=== PATIENT | male | born 1980 | race Caucasian/White ===

== ENCOUNTER 2016-08-25 07:21 | Observation (INO) ==
[2016-08-25] MEDS ORDERED: SODIUM CHLORIDE 0.9% 1,000 ML IV STA (07:50)
[2016-08-25] MEDS ORDERED: HYDROmorphone 2 MG/1 ML VIAL IV STA (07:50)
[2016-08-25] MEDS ORDERED: ONDANSETRON 4 MG/2 ML VIAL IV STA (07:50)
[2016-08-25] MEDS ORDERED: FAMOTIDINE 20 MG/2 ML VIAL IV STA (07:52)
[2016-08-25 07:57] LABS: Basophils % 0.6 % (0.0-0.8); Eosinophils # 0.2 10*3/uL (0.0-0.87); Eosinophils % 2.8 % (0.00-10.9); Hematocrit 47.9 VOL% (42.0-52.0); Hemoglobin 16.3 GM/DL (14.0-18.0); Immature Granulocytes % 0.3 %; Immature Granulocytes Absolute 0.02 #; Lymphocytes % 40.7 % (21.2-54.2); Mean Corpuscular Hemoglobin 28 PG (27-34); Mean Corpuscular Volume 81.2 FL (87-102); Mean Platelet Volume 9.8 FL (9.6-12.0); Monocytes # 0.6 10*3/uL (0.11-0.8); Monocytes % 8.6 % (1.7-12.7); Neutrophils # 3.4 10*3/uL (1.4-7.4); Platelet Count 315 T/CUMM (130-400); Red Cell Distribution Width 13.1 % (9.3-17.3); White Blood Count 7.2 T/CUMM (4-12)
--- NOTE | 2016-08-25 07:58 | Emergency Department Note ---
Tracie Ontiveros Hilary, am scribing for, and in the presence of, Dominik Rubio MD 07: 54. Joanne Ontiveros James D, MD, personally performed the services described in this documentation, ascribed by Radha Hodges in my presence, and it is both accurate and complete 756 . Arrival - Arrival Chief Complaint: Abdominal / Flank Pain Stated Complaint: chest pain,sob ED Nursing Triage Note: pt to triage via wc with c/o having abd pain, pt denies any n/v. pt states onset this am around 0530. pt states pain is all over abd no localized site. pt denies cp or sob. hurts to walk or stand up straight. Mode of Arrival: Wheelchair Limitations: No Limitations Source: Patient, RN Notes Reviewed - History of Present Illness HPI Narrative: Pt is a 36 y/o white male presenting to the ED with c/o abdominal pain which onset around 0700 this AM. Pt confirms abdominal pain on the left side but denies dysuria or hematuria. He states that he ate at 0600 and then all of a sudden his stomach started to hurt and it just go worse and worse. No other complaints or problems stated in the ED. Onset (ago): hour(s) Consistency: constant Severity: severe Severity scale (1-10): 5 Quality: sharp Allergies/Adverse Reactions: Allergies Allergy/AdvReac Type Severity Reaction Status Date / Time prednisone Allergy Redness of Verified 08/25/16 07:32 Skin Home Medications: Home Medications Medication Instructions Recorded Confirmed Type Cetirizine HCl [ZyrTEC Cap] 10 mg PO DAILY 08/25/16 08/25/16 History Fluticasone 50 Mcg Nasal [place] 50 mcg BOTH NARES ONCE PRN 08/25/16 08/25/16 History [Flonase Nasal [place]] Review of System - Review of System 12 point system: reviewed and no additional remarkable complaints except as stated - Review of System Constitutional: Absent: fever Gastrointestinal: Present: abdominal pain. Absent: vomiting Genitourinary male: Present: hematuria. Absent: dysuria Medical,Surgical,& Family Hx - Social History Smoking Status: Never smoker Frequency of Alcohol Use: None Type of Drug Use: None Exam Physical Examination: GENERAL: This is a well-nourished, well-developed in no apparent distress. VITAL SIGNS: Temperature: 97.0 Pulse: 65 Respiratory: 18 Blood Pressure: 146/ 91 O2Sat: 100 HEENT: Head is normocephalic and atraumatic. Pupils are equally round and reactive to light. Extraocular movement are intact. Oropharynx is benign with moist mucous membranes. NECK: Neck is soft and supple without tenderness. There are no masses. There is no lymphadenopathy. LUNGS: Lungs are clear to auscultation bilaterally. Chest rises symmetrically. There is no chest wall tenderness. CV: Heart is regular rate and rhythm without murmurs, rubs, or gallops. ABDOMEN: Abdomen is soft, excruciatingly tender to slight palpation around the umbilicus. Patient has an incarcerated umbilical hernia with some overlying minimal erythema of the skin. There are no abnormal masses palpated. There is no organomegaly. Bowel sounds are hypoactive. SKIN: Skin is warm and dry. No rash. EXTREMITIES: Patient has full range of motion without tenderness. There is no pedal edema. NEUROLOGIC: Awake, alert, and oriented x4. Cranial nerves II through XII are grossly intact. There are no motorsensory deficits. PSYCHIATRIC: Normal affect. Normal mood. Vital Signs: Vital Signs Temperature 97.0 F L 08/25/16 07:25 Pulse Rate 53 L 08/25/16 08:00 Respiratory Rate 18 08/25/16 08:00 Blood Pressure 114/78 08/25/16 08:00 O2 Sat by Pulse Oximetry 100 08/25/16 08:00 Course Course Narrative: Patient was given IV fluids, Dilaudid, Zofran, Pepcid. - Consultations Consultation #1: Discussed with Dr. Jasbir ROY. He will see the patient in the emergency department. Time: 07:57 Results - Labs CBC & BMP: 08/25/16 07:49 08/25/16 07:49 Lab Results: I have reviewed the patients labs Labs: Laboratory Tests 08/25/16 07:49 WBC 7.2 RBC 5.90 H Hgb 16.3 Hct 47.9 MCV 81.2 L Plt Count 315 Laboratory Tests 08/25/16 07:49 Sodium 142 Potassium 3.9 Chloride 107 Carbon Dioxide 26 BUN 14 Creatinine 1.20 Total Protein 7.4 - EKG EKG results: interpreted by ERMD - Impressions EKG: Normal sinus rhythm with rate of 61, nonspecific ST-T wave changes, normal axis. - Diagnostic Findings Procedure: Abdominal x-ray: image reviewed by me (Nonspecific gas pattern, no free air, gas in the rectum.), Chest x-ray: image reviewed by me (No infiltrates , no pleural effusions.) Disposition Clinical Impression: Incarcerated umbilical hernia Case discussed with: patient Disposition: Still a Patient Condition: Stable
[2016-08-25] MEDS ORDERED: HYDROmorphone 2 MG/1 ML VIAL ONE (07:59)
[2016-08-25] MEDS ORDERED: ONDANSETRON 4 MG/2 ML VIAL ONE (07:59)
[2016-08-25] MEDS ORDERED: FAMOTIDINE 20 MG/2 ML VIAL IV ONE (08:00)
[2016-08-25] MEDS ORDERED: LIDOCAINE 1%/EPI INJ 20 ML VIAL ONE ×2 (08:07→13:34)
[2016-08-25] MEDS ORDERED: BUPIVACAINE MPF 0.25% /EPI 30 ML VIAL ONE ×2 (08:07→13:34)
[2016-08-25 08:29] LABS: Albumin 3.9 G/DL (3.4-5.0); Calcium 9.3 MG/DL (8.5-10.1); Osmolality,Calculated 283.1 MOS/KG (273-304); Potassium 3.9 MMOL/L (3.5-5.1); Total Protein 7.4 G/DL (6.4-8.3)
--- NOTE | 2016-08-25 08:34 | EKG Report ---
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
--- NOTE | 2016-08-25 08:40 | XRay Report ---
XR abdomen 2V Indication: Generalized abdominal pain Comparison: None Technique: Frontal views of the abdomen in the supine and left lateral decubitus position. Findings: Nonspecific nonobstructive bowel gas pattern. No free intraperitoneal air. Visualized osseous and surrounding soft tissue structures demonstrate no acute abnormality. IMPRESSION: No acute abnormality demonstrated. PROCEDURE INTERPRETED AT [facility] DEPARTMENT OF RADIOLOGY Final Report Signed by: Dr Darrell Almaraz
--- NOTE | 2016-08-25 08:41 | XRay Report ---
History: Chest pain. Shortness of breath Date: 08/25/2016 Study: Chest x-ray AP portable Comparison exam: March 06, 2013 The cardiac silhouette is upper normal in size. There is no mediastinal mass. The pulmonary vasculature is not engorged. The lungs and pleural spaces are clear. Osseous structures are unremarkable. Impression: No acute cardiopulmonary process PROCEDURE INTERPRETED AT [facility] DEPARTMENT OF RADIOLOGY Final Report Signed by: Dr. Zena Mcginnis
--- NOTE | 2016-08-25 08:47 | General Surg History&Physical ---
Assessment and Plan - Time spent with patient Time spent with patient: Greater than 30 minutes (1) Incarcerated umbilical hernia Status: Acute Assessment and plan: He needs repair of this acutely developed incarcerated umbilical hernia. This is a recurrent hernia. He did not have mesh placed before according to the patient. The repair was not done at this facility. I will see if I can get records at our office. I discussed repair of this in the operating room today. He just ate breakfast and I do not think that he has incarcerated bowel. I would like to hold off for about 6 hours so that we can safely administer a general anesthesia. I did discuss the likelihood that we will need to place prosthetic mesh and he understands and agrees to proceed with surgery. The procedure and risks were outlined in detail. Current Visit: Yes History of Present Illness Chief complaint: Abdominal pain History of present illness: Mr. Lomax is a 36 year old male Who acutely developed a mass above his umbilicus this morning after he was bending over to tie his shoes. The pain has been severe. The pain does not radiate. Pain is worse with movement or walking. It has not been associated with nausea or vomiting. He has not been able to get relief from the pain and came to the emergency department where he was noted to have what appears to be an incarcerated umbilical hernia. Plain film x-rays were obtained which did not show obstruction. He has had a previous umbilical hernia repair one year ago by Dr. Villar at this location. Home Medications Medication Instructions Recorded Confirmed Type Cetirizine HCl [ZyrTEC Cap] 10 mg PO DAILY 08/25/16 08/25/16 History Fluticasone 50 Mcg Nasal [place] 50 mcg BOTH NARES ONCE PRN 08/25/16 08/25/16 History [Flonase Nasal [place]] Allergies Allergy/AdvReac Type Severity Reaction Status Date / Time prednisone Allergy Redness of Verified 08/25/16 07:32 Skin Medical,Surgical,& Family Hx - Medical History Cardio: History of: Hypertension - Surgical History Surgical History: noncontributory - Family History Family History: noncontributory - Social History Smoking Status: Never smoker Frequency of Alcohol Use: None Type of Drug Use: None Exam - Constitutional Vitals: Period Temp Pulse Resp BP Sys/Espinal Pulse Ox Last 24 Hr 97.0 F-97.0 F 53-65 18-18 114-146/78-91 100-100 General appearance: no acute distress - Head Head exam: Present: normocephalic - Eye Eye exam: Absent: scleral icterus - ENT Mouth exam: Present: normal voice - Neck Neck exam: Present: trachea midline - Respiratory Respiratory exam: Present: clear to auscultation bilaterally. Absent: accessory muscle use - Cardiovascular Cardiovascular exam: Present: RRR - GI/Abdominal GI/Abdominal exam: Present: normal bowel sounds, mass, tenderness, soft. Absent : distended, rebound - Extremities Exam Extremities exam: Absent: edema - Back Exam Back exam: Present: normal inspection - Neurological Exam Neurological exam: Present: alert, oriented X3. Absent: motor sensory deficit Speech: Present: normal - Skin Skin exam: Present: normal color - Constitutional Constitutional: Absent: chills, fever(s) - Cardiovascular Cardiovascular: Absent: chest pain at rest, chest pain with activity - Respiratory Respiratory: Absent: cough, dyspnea, hemoptysis, dyspnea on exertion - Gastrointestinal Gastrointestinal: Present: abdominal pain. Absent: bloating, cramping, hematemesis, hematochezia, melena, nausea, vomiting, jaundice - Genitourinary Genitourinary: Absent: hematuria - Musculoskeletal Musculoskeletal: Absent: back pain - Neurological Neurological: Absent: focal weakness, syncope - Endocrine Endocrine: Absent: polyuria Hematologic/Lymphatic: Absent: easy bleeding, easy bruising Results - Labs CBC & BMP: 08/25/16 07:49 08/25/16 07:49 Lab Results: I have reviewed the past 24 hour labs - Diagnostic Findings Procedure: Chest x-ray: report reviewed by me, X-ray: report reviewed by me
[2016-08-25] MEDS ORDERED: METOCLOPRAMIDE 10 MG/2 ML VIAL IV STA (08:52)
[2016-08-25] MEDS ORDERED: METOCLOPRAMIDE 10 MG/2 ML VIAL ONE (08:56)
[2016-08-25] MEDS ORDERED: ACETAMINOPHEN 325 MG TABLET PO PRN (09:40)
[2016-08-25] MEDS ORDERED: MORPHINE 2 MG/1 ML SYRINGE IV PRN (09:40)
[2016-08-25] MEDS ORDERED: ONDANSETRON 4 MG/2 ML VIAL IV PRN (09:40)
[2016-08-25] MEDS ORDERED: NEOSTIGMINE 10 MG/10 ML VIAL ONE (12:00)
[2016-08-25] MEDS ORDERED: GLYCOPYRROLATE 0.4 MG/2 ML VIAL ONE (12:00)
[2016-08-25] MEDS ORDERED: KETOROLAC 30 MG/1 ML VIAL ONE (12:00)
[2016-08-25] MEDS ORDERED: MINERAL OIL/PETROLATUM OPH OINT 3.5 GM TUBE ONE (12:00)
[2016-08-25] MEDS ORDERED: ROCURONIUM 100 MG/10 ML VIAL IV ONE (12:00)
[2016-08-25] MEDS ORDERED: LIDOCAINE 100 MG/5 ML SYRINGE ONE (12:00)
[2016-08-25] MEDS ORDERED: PROPOFOL 200 MG/20 ML VIAL IV ONE (12:00)
[2016-08-25] MEDS ORDERED: SUCCINYLCHOLINE 200 MG/10 ML VIAL ONE (12:00)
[2016-08-25] MEDS ORDERED: TISSUE ADHESIVE 1 EACH APPLICATOR TOP ONE (13:34)
[2016-08-25] MEDS ORDERED: CITRIC ACID/SODIUM CITRATE 30 ML UDCUP PO ONE (14:30)
--- NOTE | 2016-08-25 14:59 | Operative Note ---
Date of procedure: 08/25/16 Pre-op diagnosis: Recurrent incarcerated umbilical hernia Post-op diagnosis: same Procedure: Repair recurrent incarcerated umbilical hernia with preperitoneal polypropylene mesh Findings and technique: After informed consent was obtained patient brought the operating room placed in supine position. After successful induction of general anesthesia the patient's abdomen was prepped and draped in usual sterile fashion. Local anesthesia was infiltrated and incision made to his old infraumbilical scar dissecting down to the hernia sac which was behind the umbilical skin. This sac actually was reduced with dissection and then the sac dissected free from the surrounding subcutaneous tissue and reduced back through a fascial defect just above his previous repair which was about 3 cm transversely by about 1.5 cm vertically. The peritoneal dissection was then carried out in all directions so that I could trim a piece of surgery mesh about 6 x [address] this in the preperitoneal space flap covering the previous repair and the fascial defect just above it from behind. This was anchored several centimeters back from the fascial edges with full-thickness 0 Prolene sutures and then the edges of the defect were approximated over the mesh completely covering the mesh with anchoring sutures of 0 Prolene suture. Wound was irrigated and closed the deep layer of interrupted 3-0 Vicryl subcutaneous suture and skin with a running 4-0 Vicryl subcuticular suture and tissue adhesive. Anesthesia: GETA, local Surgeon / Physician: James Martell III. Estimated blood loss: minimal Specimens: none sent Condition: stable Disposition: PACU Results - Labs CBC & BMP: 08/25/16 07:49 08/25/16 07:49 Discharge Plan - Discharge Medications No Action Cetirizine HCl [ZyrTEC Cap] 10 mg PO DAILY Fluticasone 50 Mcg Nasal [place] [Flonase Nasal [place]] 50 mcg BOTH NARES ONCE PRN PRN Reason: Allergy Symptoms Ubidecarenone [Co Q-10] 100 mg PO DAILY Multivitamin [Multivitamins] 1 each PO DAILY - Follow Up or Referral - Forms/Instructions
[2016-08-25] MEDS ORDERED: DESFLURANE 1 UNIT/15 MINUTE INH ONE (15:13)
[2016-08-25] MEDS ORDERED: MIDAZOLAM 2 MG/2 ML VIAL ONE (15:13)
[2016-08-25] MEDS ORDERED: fentaNYL 100 MCG/2 ML VIAL ONE (15:14)
[2016-08-25] MEDS ORDERED: ACETAMINOPHEN 1,000 MG/100 ML VIAL IV ONE (15:14)
[2016-08-25] MEDS ORDERED: NALOXONE 0.4 MG/ML VIAL ONE (15:14)
--- NOTE | 2016-08-25 16:21 | Anesthesia Post-Op ---
Anesthesia Post OP - Post Ansesthetic Evaluation Patient seen in post op: Yes Resp: within normal limits CV: within normal limits Mental: within normal limits Temp: within normal limits [id number]: within normal limits Nausea and Vomiting: within normal limits Pain: within normal limits
[2016-08-25] MEDS: DEXTROSE 5% NACL 0.45% 1,000 ML IV SCH ×2 (17:44→19:01)
[2016-08-26] MEDS: DEXTROSE 5% NACL 0.45% 1,000 ML IV SCH (01:45)
[2016-08-26 07:41] VITALS: BP 142/80
[2016-08-26] MEDS ORDERED: PANTOPRAZOLE 40 MG TABLET PO SCH (09:00)
--- NOTE | 2016-08-26 10:17 | Event Note ---
He feels well. He has no GI symptoms and his pain is well controlled. His abdomen is benign and he has stable vital signs. We will discharge him home with plans to follow-up in my office in the next 1-2 weeks.
--- NOTE | 2016-08-26 10:32 | Discharge Summary ---
Hospital Course - Hospital Course Hospital Course: The patient is a 36-year-old male who presented with recurrent incarcerated umbilical hernia and underwent repair with preperitoneal polypropylene mesh. His postoperative course was uneventful. He at the time of discharge, he was tolerating oral intake with regular diet, voiding without difficulty, tolerating activity without difficulty. Appropriate analgesic was obtained with oral analgesics. He was discharged home in good condition. Follow with Dr. Martell in 1-2 weeks. Diagnosis - Discharge Diagnosis (1) Recurrent umbilical hernia with incarceration Status: Acute Specialty Discharge - Follow Up or Referrals Follow up with: James Martell III., MD [Physician] - 09/01/16 9:30 am Discharge Plan - Discharge Data Disposition: Disch To Home/Self Care Condition at Discharge: Stable Discharge Diet: advance to your usual diet Activity: no lifting (> 10 lb) Hygiene: may shower (Do not soak or submerge wound. Pat dry. Avoid excessive perspiration .) Driving: not until seen by doctor Contact your physician if you experience:: fever over 101, Redness or swelling, Nausea/Vomiting, Shortness of breath, Bleeding, pain uncontrolled by pain medications Wound / Dressing Care Instructions: Keep surgical incisions clean and dry. - Discharge Medications New HYDROcodone/ACETAMIN 7.5-325 [[place] 7.5-325] 1 tablet PO Q4H PRN #30 tablet PRN Reason: Pain Moderate To Severe (4-10) Continue Cetirizine HCl [ZyrTEC Cap] 10 mg PO DAILY Fluticasone 50 Mcg Nasal [place] [Flonase Nasal [place]] 50 mcg BOTH NARES ONCE PRN PRN Reason: Allergy Symptoms Ubidecarenone [Co Q-10] 100 mg PO DAILY Multivitamin [Multivitamins] 1 each PO DAILY - Follow Up or Referral Follow Up: James Martell III., MD [Physician] - 09/01/16 9:30 am - Forms/Instructions Instructions: Umbilical Hernia (DC), Hydrocodone/Acetaminophen (By mouth) Additional Discharge Instructions: Refrain from work until f/u appt with Dr. Martell. Exam - Constitutional Vitals: Period Temp Pulse Resp BP Sys/Espinal Pulse Ox Last 24 Hr 97.1 F-98.5 F 62-88 16-20 104-142/58-89 96-100 General appearance: no acute distress - Eye Eye exam: Absent: conjunctival injection, scleral icterus - Respiratory Respiratory exam: Present: clear to auscultation bilaterally - Cardiovascular Cardiovascular exam: Present: regular rate and rhythm - GI/Abdominal GI/Abdominal exam: Present: normal bowel sounds, tenderness (appropriate p/o tenderness), soft, other (Surgical incisions are clean, dry and intact) - Extremities Exam Extremities exam: Absent: calf tenderness, edema - Neurological Exam Neurological exam: Present: alert, oriented X3 - Psychiatric Psychiatric exam: Present: normal affect, normal mood - Skin Skin exam: Present: normal color, warm Discharge Results Procedures and tests throughout hospitalization: 1. Repair of recurrent incarcerated umbilical hernia with preperitoneal polypropylene mesh; no pathology pending - Imaging and Cardiology Procedure: KUB x-ray: image reviewed by me, report reviewed by me DS: Provider Date of admission: 08/25/16 08:37 Primary care physician: . No PCP Attending physician on admission: James Martell, III., Discharging clinician: Dali Velasquez PA-C
== END 2016-08-26 11:30 | disposition home or self-care (01) ==
LOC: N.ED 07:21 → N.SDS 08:09 → N.SDSINP 08:11 → INTOOBSV 08:37 → N.EDINP 08:37 → N.3E 08:52
PROVIDERS: ADMIT Surgery; ATTEND Surgery